=== PATIENT | female | born 1955 | race Caucasian/White ===

== ENCOUNTER 2021-10-16 10:01 | Day surgery (SDC) | payer MEDICARE, OTHER ==
[2021-10-16] MEDS ORDERED: Sodium Chloride 0.9% 10 ML Syringe FLUSH PRN (10:30)
[2021-10-16] MEDS ORDERED: Lactated Ringers 1,000 ML IV SCH (10:30)
[2021-10-16] MEDS ORDERED: Propofol 200 MG/20 ML SDV ONE (11:30)
[2021-10-16] MEDS ORDERED: Midazolam 1 MG/ML 2 ML SDV ONE (11:30)
== END 2021-10-16 14:00 | disposition home or self-care (01) ==
LOC: KA.SDS 10:01
PROVIDERS: ATTEND Family Medicine
DX: K59.00 Constipation, unspecified (principal); G62.9 Polyneuropathy, unspecified; E03.9 Hypothyroidism, unspecified; Z98.890 Other specified postprocedural states; E66.01 Morbid (severe) obesity due to excess calories; Z79.899 Other long term (current) drug therapy; Z88.8 Allergy status to other drugs, medicaments and biological substances; Z68.34 Body mass index [BMI] 34.0-34.9, adult
CPT/HCPCS: 00812; 36415; 84132; J2250; J2704; J7120